=== PATIENT | female | born 2000 | race Hispanic/Latino ===

== ENCOUNTER 2022-06-14 07:43 | Inpatient (IN) | payer OTHER ==
[~2022-06-14] VITALS: Ht 160 cm; Wt 69.9 kg
[2022-06-14 08:02] VITALS: BP 128/79
[2022-06-14] MEDS ORDERED: PRENTAB9 PO (08:10)
[2022-06-14] MEDS ORDERED: LACTATED RINGER'S 1000 ML IV STA (08:59)
[2022-06-14] MEDS ORDERED: LIDOCAINE 1% MDV 20ML VIAL INFIL PRN (09:00)
[2022-06-14] MEDS ORDERED: OXYTOCIN INJ 10 UNITS/ML VIAL (J2590) IV PRN (09:00)
[2022-06-14] MEDS ORDERED: METHYLERGONOVINE MALEATE 0.2 MG/ML VIAL (J2210) IM PRN (09:00)
[2022-06-14] MEDS ORDERED: OXYTOCIN INJ 10 UNITS/ML VIAL (J2590) IM PRN (09:00)
[2022-06-14] MEDS ORDERED: OXYTOCIN DRIP 30 UNITS in IV 1 EA IV PRN ×6 (09:00)
[2022-06-14] MEDS ORDERED: CARBOPROST TROMETHAMINE 250 MCG/ML AMP IM PRN (09:00)
[2022-06-14] MEDS ORDERED: TRANEXAMIC ACID INJection 1,000 MG in NS 100 ML IV PRN (09:00)
[2022-06-14] MEDS ORDERED: LR 1,000 ML IV SCH (09:00)
[2022-06-14] MEDS ORDERED: OXYTOCIN DRIP 30 UNITS in IV 1 EA IV SCH (09:00)
[2022-06-14 09:50] LABS: HEMATOCRIT 35.6 % (36.0-47.0); MEAN CORPUSCULAR HEMOGLOBIN 31.1 pg (27.0-33.0); MEAN CORPUSCULAR HGB CONC 33.7 g/dl (32.0-36.5); MEAN CORPUSCULAR VOLUME 92.2 fl (80.0-96.0); PLATELET COUNT, AUTOMATED 274 10^3/uL (150-450); RED BLOOD COUNT 3.86 10^6/uL (4.00-5.40); WHITE BLOOD COUNT 10.9 10^3/uL (4.0-10.0)
[2022-06-14] MEDS: LR 1,000 ML IV SCH (11:28)
[2022-06-14] MEDS ORDERED: PROMETHAZINE 25MG/ML 1ML VIAL IM ONE (11:35)
[2022-06-14] MEDS ORDERED: BUTORPHANOL 2 MG/ML INJ (J0595) IV ONE ×2 (11:35→21:10)
[2022-06-14 11:58] VITALS: BP 116/70
[2022-06-14] MEDS: miSOPROStol 50MCG 1/2 TABLET PO PRN ×2 (12:12→16:32)
[2022-06-14 15:58] VITALS: BP 129/74
[2022-06-14 19:24] VITALS: BP 127/73
[2022-06-14] MEDS ORDERED: PROMETHAZINE 25MG/ML 1ML VIAL IV ONE (21:10)
[2022-06-14 23:09] VITALS: BP 129/79
[2022-06-15] VITALS (63 sets, daily range): BP systolic 102–139; BP diastolic 53–96
[2022-06-15] MEDS ORDERED: FENTANYL 2MCG/ML ROPIVACAINE 0.2% IN 0.9% NACL 100ML IVBAG As Ordered ONE (01:27)
[2022-06-15] MEDS: SLF 3 ML SYR IV SCH (01:50)
[2022-06-15] MEDS ORDERED: diphenhydrAMINE 50MG/ML VIAL (J1200) IV PRN ×2 (02:45→17:50)
[2022-06-15] MEDS ORDERED: EPIDURAL/PCA KEYS XX PRN (02:45)
[2022-06-15] MEDS ORDERED: ONDANSETRON 4MG 2ML VIAL IV PRN ×3 (02:45→17:50)
[2022-06-15] MEDS ORDERED: NALOXONE INJ 0.4MG/1ML VIAL (J2310 PER 1MG) IV PRN ×3 (02:45→17:50)
[2022-06-15] MEDS ORDERED: ePHEDrine SULFATE 25 MG/5 ML(5MG/ML) SYRINGE IVP PRN (02:45)
[2022-06-15] MEDS ORDERED: LR 500 ML IV PRN (02:45)
[2022-06-15] MEDS: FENTANYL/ROPIVACAINE/NACL BAG 100 ML EPIDURAL SCH ×2 (03:59→09:11)
[2022-06-15] MEDS ORDERED: OXYTOCIN INJ 10 UNITS/ML VIAL (J2590) IV ONE ×2 (07:35→16:55)
[2022-06-15] MEDS: LR 1,000 ML IV SCH ×2 (10:35→21:22)
[2022-06-15] MEDS ORDERED: HOME MED LIST COMPLETE! XX SCH (11:00)
[2022-06-15] MEDS ORDERED: OXYTOCIN INJ 10 UNITS/ML VIAL (J2590) IV PRN (14:35)
[2022-06-15] MEDS ORDERED: TRANEXAMIC ACID INJection 1,000 MG in NS 100 ML IV PRN (14:35)
[2022-06-15] MEDS ORDERED: METHYLERGONOVINE MALEATE 0.2 MG/ML VIAL (J2210) IM PRN (14:35)
[2022-06-15] MEDS ORDERED: OXYTOCIN DRIP 30 UNITS in IV 1 EA IV PRN ×4 (14:35)
[2022-06-15] MEDS ORDERED: AZITHROMYCIN INJ 500 MG, VIAL MATE ADAPTER 1 EACH in NS 250 ML IV ONE (14:35)
[2022-06-15] MEDS ORDERED: LR 1,000 ML IV SCH ×3 (14:35→17:50)
[2022-06-15] MEDS ORDERED: BICITRA 30ML SOLN UDC PO ONE (14:45)
[2022-06-15] MEDS ORDERED: BUPIVACAINE HCL 0.25% 10ML VIAL SC ONE (14:45)
[2022-06-15 14:59] LABS: HEMATOCRIT 35.1 % (36.0-47.0); HEMOGLOBIN 11.9 g/dl (12.0-15.5); MEAN CORPUSCULAR HGB CONC 33.9 g/dl (32.0-36.5); MEAN CORPUSCULAR VOLUME 91.4 fl (80.0-96.0); PLATELET COUNT, AUTOMATED 228 10^3/uL (150-450); RED BLOOD COUNT 3.84 10^6/uL (4.00-5.40); WHITE BLOOD COUNT 26.3 10^3/uL (4.0-10.0)
[2022-06-15] MEDS ORDERED: ceFAZolin SOD 2 GM in IV 1 EA IV ONE (15:00)
[2022-06-15] MEDS ORDERED: ACETAMINOPHEN 650 MG SUPP PR ONE (15:00)
[2022-06-15] MEDS ORDERED: OXYTOCIN 30 UNITS IN 0.9% NaCl 500ML IV BAG (J2590) As Ordered ONE ×2 (15:31→17:06)
[2022-06-15] MEDS ORDERED: LIDOCAINE 2% W/EPINEPHRINE 20ML VIAL **PRES FREE As Ordered ONE (15:31)
[2022-06-15] MEDS ORDERED: OXYTOCIN INJ 10 UNITS/ML VIAL (J2590) As Ordered ONE (15:56)
[2022-06-15] MEDS ORDERED: ONDANSETRON 4MG 2ML VIAL As Ordered ONE (15:56)
[2022-06-15] MEDS ORDERED: KETOROLAC 60MG 2ML VIAL As Ordered ONE (15:56)
[2022-06-15] MEDS ORDERED: MORPHINE PRES-FREE INJ 10 MG/10 ML VIAL As Ordered ONE (15:59)
[2022-06-15 16:41] LABS: CORD GAS ABE A -5.9; CORD GAS HCO3 A 19.3 MEQ/L; CORD GAS HCO3 V 20.6 MEQ/L; CORD GAS O2 SAT A 87.4 %; CORD GAS O2 SAT V 87.8 %; CORD GAS PCO2 A 37.7 mmHg; CORD GAS PCO2 V 40.7 mmHg; CORD GAS PH A 7.328 UNITS; CORD GAS PH V 7.323 UNITS; CORD GAS PO2 A 45.6 mmHg; CORD GAS PO2 V 46.5 mmHg; CORD GAS SBC A 19.5 MEQ/L; CORD GAS SBC V 20.1 MEQ/L; CORD GAS TCO2 A 20.5 MEQ/L; CORD GAS TCO2 V 21.9 MEQ/L
[2022-06-15] MEDS ORDERED: SIMETHICONE 80MG CHEW TAB PO PRN (16:55)
[2022-06-15] MEDS ORDERED: OXYTOCIN DRIP 30 UNITS in IV 1 EA IV ONE (16:55)
[2022-06-15] MEDS ORDERED: ACETAMINOPHEN 500 MG TAB PO PRN (16:55)
[2022-06-15] MEDS ORDERED: ANUSOL HC CREAM 30GM TOP PRN (16:55)
[2022-06-15] MEDS ORDERED: RHOGAM 300 MCG (1500 IU) INJ (J2790) IM SCH (16:55)
[2022-06-15] MEDS ORDERED: ACETAMINOPHEN TAB 650MG DOSE (2X325MG) PO PRN (16:55)
[2022-06-15] MEDS ORDERED: DOCUSATE SODIUM 100MG CAPSULE PO PRN (16:55)
[2022-06-15] MEDS ORDERED: METHYLERGONOVINE MALEATE 0.2 MG TAB PO PRN (16:55)
[2022-06-15] MEDS ORDERED: OXYTOCIN DRIP 30 UNITS in IV 1 EA IV SCH (16:55)
[2022-06-15] MEDS ORDERED: MOM 30ML SUSPENSION UDC PO PRN (16:55)
[2022-06-15] MEDS ORDERED: **NOTE PATIENT COMMENT** MISC XX SCH (17:50)
[2022-06-15] MEDS ORDERED: oxyCODONE 5MG TAB PO PRN (17:50)
[2022-06-15] MEDS ORDERED: METOCLOPRAMIDE INJ 10MG/2ML VIAL (J2765 PER 1) IV PRN (17:50)
[2022-06-15] MEDS ORDERED: fentaNYL 100 MCG/2 ML INJECTION IV PRN (17:50)
[2022-06-15] MEDS: PERCOCET 5MG/325MG TAB PO PRN (21:32)
[2022-06-15] MEDS: KETOROLAC 30 MG/ML 1ML VIAL IV SCH (23:11)
[2022-06-16 02:03] VITALS: BP 122/74
[2022-06-16] MEDS: KETOROLAC 30 MG/ML 1ML VIAL IV SCH ×2 (05:13→11:04)
[2022-06-16 06:08] VITALS: BP 111/70
[2022-06-16 07:51] LABS: MEAN CORPUSCULAR HEMOGLOBIN 30.6 pg (27.0-33.0); MEAN CORPUSCULAR HGB CONC 33.2 g/dl (32.0-36.5); MEAN CORPUSCULAR VOLUME 92.1 fl (80.0-96.0); PLATELET COUNT, AUTOMATED 191 10^3/uL (150-450); RED BLOOD COUNT 3.04 10^6/uL (4.00-5.40); WHITE BLOOD COUNT 21.9 10^3/uL (4.0-10.0)
[2022-06-16 08:00] LABS: HEMOGLOBIN 9.3 g/dl (12.0-15.5)
[2022-06-16] MEDS: PRENATAL VITAMINS CHEWABLE TABLET PO SCH (09:00)
[2022-06-16] MEDS: SLF 3 ML SYR IV SCH ×2 (09:01→11:03)
[2022-06-16 10:00] VITALS: BP 105/60
[2022-06-16] MEDS: LR 1,000 ML IV SCH ×3 (12:28→12:30)
[2022-06-16 14:00] VITALS: BP 112/59
[2022-06-16] MEDS: PERCOCET 5MG/325MG TAB PO PRN (14:00)
[2022-06-16] MEDS: IBUPROFEN 600MG TAB PO PRN (17:43)
[2022-06-16 18:00] VITALS: BP 119/76
[2022-06-16 22:29] VITALS: BP 121/72
[2022-06-17] MEDS: PERCOCET 5MG/325MG TAB PO PRN ×3 (01:09→16:30)
[2022-06-17 02:29] VITALS: BP 118/72
[2022-06-17 06:07] VITALS: BP 109/62
[2022-06-17] MEDS: IBUPROFEN 600MG TAB PO PRN ×2 (06:21→16:29)
[2022-06-17] MEDS: PRENATAL VITAMINS CHEWABLE TABLET PO SCH (08:14)
[2022-06-17] MEDS ORDERED: MEASLES,MUMPS,RUBELLA VACCINE INJ (MMR-II) (90707) SC.IMMUN ONE (09:00)
[2022-06-17] MEDS ORDERED: COLA100C5 PO (09:07)
[2022-06-17] MEDS ORDERED: IBUP-1022 PO (09:07)
[2022-06-17] MEDS ORDERED: ACET-683 PO (09:07)
[2022-06-17 10:00] VITALS: BP 125/79
== END 2022-06-17 18:00 | disposition home or self-care (01) | DRG 773 ==
LOC: M LDI 07:43 → M OBS 06-15 18:31
PROVIDERS: ADMIT Obstetrics & Gynecology; ATTEND Obstetrics & Gynecology
PROC: 3E033VJ Introduction of Other Hormone into Peripheral Vein, Percutaneous Approach (ICD-10-PCS; 2022-06-14)
PROC: 10907ZC Drainage of Amniotic Fluid, Therapeutic from Products of Conception, Via Natural or Artificial Opening (ICD-10-PCS; 2022-06-15)
PROC: 10D00Z1 Extraction of Products of Conception, Low, Open Approach (ICD-10-PCS; principal; 2022-06-15 15:40)
DX: O48.0 Post-term pregnancy (principal); Z3A.41 41 weeks gestation of pregnancy; O77.0 Labor and delivery complicated by meconium in amniotic fluid; O64.0XX0 Obstructed labor due to incomplete rotation of fetal head, not applicable or unspecified; O64.2XX0 Obstructed labor due to face presentation, not applicable or unspecified; Z37.0 Single live birth

== ENCOUNTER 2024-01-23 05:07 | Inpatient (IN) | payer OTHER ==
[2024-01-23] VITALS (8 sets, daily range): BP systolic 104–131; BP diastolic 54–83; O2SAT 97–100
[~2024-01-23] VITALS: Ht 160 cm; Wt 74.6 kg
[~2024-01-23 05:07] MED LIST: ACET-683 PO; COLA100C5 PO; IBUP-1022 PO; PRENTAB9 PO
[2024-01-23] MEDS: LACTATED RINGER'S 1000 ML IV STA (05:40)
[2024-01-23 06:01] LABS: HEMATOCRIT 38.6 % (36.0-47.0); HEMOGLOBIN 13.6 g/dl (12.0-15.5); MEAN CORPUSCULAR HEMOGLOBIN 32.5 pg (27.0-33.0); MEAN CORPUSCULAR HGB CONC 35.2 g/dl (32.0-36.5); MEAN CORPUSCULAR VOLUME 92.3 fl (80.0-96.0); PLATELET COUNT, AUTOMATED 207 10^3/uL (150-450); RED BLOOD COUNT 4.18 10^6/uL (4.00-5.40); WHITE BLOOD COUNT 8.7 10^3/uL (4.0-10.0)
[2024-01-23] MEDS: BICITRA 30ML SOLN UDC PO ONE (07:15)
[2024-01-23] MEDS: ceFAZolin SOD 2 GM in IV 1 EA IV ONE (07:16)
[2024-01-23] MEDS: LR 1,000 ML IV SCH ×2 (07:16→15:17)
[2024-01-23] MEDS ORDERED: KETOROLAC 60MG 2ML VIAL As Ordered ONE (07:21)
[2024-01-23] MEDS ORDERED: OXYTOCIN INJ 10UNITS/ML 1ML VIAL As Ordered ONE (07:21)
[2024-01-23] MEDS ORDERED: ONDANSETRON 4MG 2ML VIAL As Ordered ONE (07:21)
[2024-01-23] MEDS ORDERED: MORPHINE PRES-FREE INJ 10 MG/10 ML VIAL As Ordered ONE (07:22)
[2024-01-23] MEDS ORDERED: ePHEDrine SULFATE 25 MG/5 ML(5MG/ML) SYRINGE As Ordered ONE (08:19)
[2024-01-23] MEDS ORDERED: PHENYLephrine 500MCG 5ML (100MCG/ML) SYRINGE As Ordered ONE (08:19)
[2024-01-23 08:54] LABS: CORD GAS ABE A -4.4; CORD GAS HCO3 A 24.4 MMOL/L; CORD GAS O2 SAT A 38.9 %; CORD GAS PCO2 A 62.2 mmHg; CORD GAS PH A 7.212 UNITS; CORD GAS PO2 A 22.4 mmHg; CORD GAS SBC A 19.6 MMOL/L; CORD GAS TCO2 A 26.3 MMOL/L
[2024-01-23 08:56] LABS: CORD GAS ABE V -4.8; CORD GAS HCO3 V 21.8 MMOL/L; CORD GAS O2 SAT V 79.1 %; CORD GAS PCO2 V 45.7 mmHg; CORD GAS PH V 7.296 UNITS; CORD GAS PO2 V 40.4 mmHg; CORD GAS SBC V 20.2 MMOL/L; CORD GAS TCO2 V 23.2 MMOL/L
[2024-01-23] MEDS: PRENATAL VITAMINS CHEWABLE TABLET PO SCH (09:00)
[2024-01-23] MEDS: DOCUSATE SODIUM 100MG CAPSULE PO SCH (09:00)
[2024-01-23] MEDS ORDERED: oxyCODONE 5MG TAB PO PRN ×2 (10:00→10:40)
[2024-01-23] MEDS ORDERED: METHYLERGONOVINE MALEATE 0.2MG/ML 1ML VIAL IM PRN (10:00)
[2024-01-23] MEDS ORDERED: RHOGAM 300MCG (1500IU) INJ IM SCH (10:00)
[2024-01-23] MEDS ORDERED: METOCLOPRAMIDE INJ 10MG/2ML VIAL IV PRN (10:00)
[2024-01-23] MEDS ORDERED: OXYTOCIN 30UNITS IN 0.9% NaCl 500ML IV BAG As Ordered ONE (10:38)
[2024-01-23] MEDS ORDERED: ONDANSETRON 4MG 2ML VIAL IV PRN (10:40)
[2024-01-23] MEDS ORDERED: NALOXONE INJ 0.4MG/1ML VIAL IV PRN ×2 (10:40)
[2024-01-23] MEDS ORDERED: **NOTE PATIENT COMMENT** MISC XX SCH (10:40)
[2024-01-23] MEDS: SLF 3 ML SYR IV SCH (10:40)
[2024-01-23] MEDS ORDERED: diphenhydrAMINE 50MG/ML VIAL IV PRN (10:40)
[2024-01-23] MEDS ORDERED: fentaNYL 100 MCG/2 ML INJECTION IV PRN (10:40)
[2024-01-23] MEDS ORDERED: MEPERIDINE 25 MG/ML 1ML VIAL IV PRN (10:40)
[2024-01-23] MEDS ORDERED: HYDROMORPHONE HCL 0.5 MG/ 0.5 ML SYRINGE IV PRN (10:40)
[2024-01-23] MEDS: OXYTOCIN DRIP 30 UNITS in IV 1 EA IV SCH (10:41)
[2024-01-23] MEDS: ACETAMINOPHEN 500 MG TAB PO SCH (13:34)
[2024-01-23] MEDS: METOCLOPRAMIDE INJ 10MG/2ML VIAL IV PRN (13:43)
[2024-01-23] MEDS: KETOROLAC 30 MG/ML 1ML VIAL IV SCH (16:14)
[2024-01-23] MEDS: oxyCODONE 5MG TAB PO PRN (18:11)
[2024-01-23] MEDS: ONDANSETRON 4MG 2ML VIAL IV PRN (22:07)
[2024-01-24] VITALS (7 sets, daily range): BP systolic 110–120; BP diastolic 54–78; TEMP 98.1; O2SAT 96–98
[2024-01-24 06:57] LABS: MEAN CORPUSCULAR HEMOGLOBIN 32.7 pg (27.0-33.0); MEAN CORPUSCULAR HGB CONC 34.3 g/dl (32.0-36.5); MEAN CORPUSCULAR VOLUME 95.2 fl (80.0-96.0); PLATELET COUNT, AUTOMATED 167 10^3/uL (150-450); RED BLOOD COUNT 3.12 10^6/uL (4.00-5.40); WHITE BLOOD COUNT 11.1 10^3/uL (4.0-10.0)
[2024-01-24 07:05] LABS: HEMATOCRIT 29.7 % (36.0-47.0); HEMOGLOBIN 10.2 g/dl (12.0-15.5)
[2024-01-24] MEDS: IBUPROFEN 800 MG TAB PO SCH (12:30)
[2024-01-25 02:00] VITALS: BP 112/56
[2024-01-25] MEDS: SIMETHICONE 80MG CHEW TAB PO PRN (02:10)
[2024-01-25 05:48] VITALS: BP 105/63
[2024-01-25 10:00] VITALS: BP 114/68; O2SAT 96
[2024-01-25] MEDS: MEASLES,MUMPS,RUBELLA VACCINE INJ (MMR-II) SC.IMMUN ONE (13:54)
== END 2024-01-25 14:40 | disposition home or self-care (01) | DRG 773 ==
LOC: M LDI 05:07 → M OBS 11:42
PROVIDERS: ADMIT Obstetrics & Gynecology; ATTEND Obstetrics & Gynecology
PROC: 10D00Z1 Extraction of Products of Conception, Low, Open Approach (ICD-10-PCS; principal; 2024-01-23 07:30)
DX: O34.211 Maternal care for low transverse scar from previous cesarean delivery (principal); Z3A.39 39 weeks gestation of pregnancy; Z37.0 Single live birth